=== PATIENT | female | born 1965 | race Caucasian/White ===

== ENCOUNTER 2020-04-12 09:13 | Outpatient (RCR) | payer OTHER, SELFPAY | END 2020-04-22 23:59 | disposition home or self-care (01) | LOC: SPT 09:13 | PROVIDERS: PCP Family Medicine; Referring Provider Emergency Medicine; Visit Provider Emergency Medicine | DX: M75.112 Incomplete rotator cuff tear or rupture of left shoulder, not specified as traumatic (principal) | CPT/HCPCS: 97110 ==

== ENCOUNTER 2020-04-23 06:00 | Outpatient (RCR) | payer OTHER, SELFPAY | END 2020-05-22 23:59 | disposition home or self-care (01) | LOC: SPT 06:00 | PROVIDERS: PCP Family Medicine; Referring Provider Emergency Medicine; Visit Provider Emergency Medicine | DX: M75.112 Incomplete rotator cuff tear or rupture of left shoulder, not specified as traumatic (principal) | CPT/HCPCS: 97110 ==

== ENCOUNTER 2020-05-23 06:00 | Outpatient (RCR) | payer OTHER, SELFPAY | END 2020-06-22 23:59 | disposition home or self-care (01) | LOC: SPT 06:00 | PROVIDERS: PCP Family Medicine; Referring Provider Emergency Medicine; Visit Provider Emergency Medicine | DX: M75.112 Incomplete rotator cuff tear or rupture of left shoulder, not specified as traumatic (principal) | CPT/HCPCS: 97110 ==

== ENCOUNTER → 2023-01-23 08:31 | Outpatient (BNVA) | payer OTHER, SELFPAY | PROVIDERS: PCP Family Medicine; Visit Provider Family Medicine | DX: I10 Essential (primary) hypertension; Z00.00 Encounter for general adult medical examination without abnormal findings; Z13.6 Encounter for screening for cardiovascular disorders; E03.9 Hypothyroidism, unspecified | CPT/HCPCS: 80053; 80061; 84443; 85025 ==

== ENCOUNTER 2023-02-05 07:29 | Outpatient (CLI) | payer OTHER, SELFPAY ==
--- NOTE | 2023-02-05 07:42 | MM_ITS ---
WS: [id number] DIAGNOSTIC BILATERAL DIGITAL BREAST TOMOSYNTHESIS MAMMOGRAPHY WITH CAD Right breast ultrasound, limited HISTORY: lump lower inner right breast COMPARISON: 05/05/2019, 03/20/2018 TECHNIQUE: Bilateral craniocaudad, mediolateral oblique, and mediolateral views are submitted with to mosynthesis and SM. Spot compression right CC and MLO. Computer aided detection utilized. Breast composition: There are scattered areas of fibroglandular density. No masses or suspicious calc ifications are identified. There is no abnormality at the site of the palpable mass along the inferio r medial breast. Right breast ultrasound, limited. Ultrasound directed to the right breast at 4:00. No mass or distortion or shadowing identified. Selena l ultrasound right breast in the area indicated by the patient. IMPRESSION: MM/[place] [id number] BI-RADS: 2-Benign FOLLOW UP: 1 Year Follow-up
--- NOTE | 2023-02-05 08:14 | US_ITS ---
WS: [id number] DIAGNOSTIC BILATERAL DIGITAL BREAST TOMOSYNTHESIS MAMMOGRAPHY WITH CAD Right breast ultrasound, limited HISTORY: lump lower inner right breast COMPARISON: 05/05/2019, 03/20/2018 TECHNIQUE: Bilateral craniocaudad, mediolateral oblique, and mediolateral views are submitted with to mosynthesis and SM. Spot compression right CC and MLO. Computer aided detection utilized. Breast composition: There are scattered areas of fibroglandular density. No masses or suspicious calc ifications are identified. There is no abnormality at the site of the palpable mass along the inferio r medial breast. Right breast ultrasound, limited. Ultrasound directed to the right breast at 4:00. No mass or distortion or shadowing identified. Selena l ultrasound right breast in the area indicated by the patient. IMPRESSION: US/US breast RT limited* [id number] BI-RADS: 2-Benign FOLLOW UP: 1 Year Follow-up
== END 2023-02-05 07:30 | disposition home or self-care (01) ==
PROVIDERS: PCP Family Medicine; Visit Provider Family Medicine
DX: N63.14 Unspecified lump in the right breast, lower inner quadrant (principal)
CPT/HCPCS: 76642; 77062; G0279

== ENCOUNTER → 2024-11-25 15:46 | Outpatient (BNVA) | payer OTHER, SELFPAY | PROVIDERS: PCP Family Medicine; Visit Provider Family Medicine | DX: Z00.00 Encounter for general adult medical examination without abnormal findings (principal); I10 Essential (primary) hypertension; R00.2 Palpitations; E03.9 Hypothyroidism, unspecified | CPT/HCPCS: 80053; 80061; 82607; 84443; 85025 ==

== ENCOUNTER 2025-04-18 12:55 | Outpatient (CLI) | payer OTHER, SELFPAY ==
[2025-04-18] MEDS: iohexol 350 mg/mL 500 mL Btl (per mL) PO (13:57)
--- NOTE | 2025-04-18 14:00 | CT_ITS ---
WS: [id number] CT ABDOMEN AND PELVIS WITH CONTRAST HISTORY: K57.92 - Diverticulitis of intestine, part unspecified, w... TECHNIQUE: Imaging performed of the abdomen and pelvis with IV contrast. Single phase imaging of the abdomen. Coronal and sagittal reformats are submitted. All CT scans at [facility] use at least one of these dose optimization techniques: automated exposure control; mA and/or kV adjustment per patient size (includes targeted exams where dose is matched to clinical indication); or iterative reconstruction. IV CONTRAST: Omnipaque 350; 100 mL IV. Oral contrast: Yes. DLP: 826.20 mGy.cm COMPARISON: None available. Lower thorax: Lung bases are clear. Heart is normal size. Small hiatal hernia. Liver/biliary system: Liver is top normal size. Focal fatty sparing along the falciform ligament. No mass or intrahepatic dilatation. Gallbladder: Status post cholecystectomy. Pancreas: Normal size pancreas and pancreatic duct. No adjacent inflammation. Spleen: Normal size spleen. No mass or infarct. Adrenal glands: Normal. Right kidney: Normal. Left kidney: Normal. Aorta: Normal. Lymphadenopathy: None. Free fluid: None. GI tract: Normally distended stomach. No small bowel obstruction. Prior appendectomy. Mild diffuse constipation throughout the colon. Pancolonic diverticulosis with increasing diverticular burden in the descending and sigmoid colon. There is some very minimal inflammation surrounding the mid descending colon. No fluid or free air. No abscess. Abdominal wall: Unremarkable abdominal wall. No hernia. Pelvis: No free fluid or adenopathy within the pelvis. Prior hysterectomy. Bones: 2 mm anterolisthesis of L3. CT/CT abdomen pelvis w con* [id number] IMPRESSION: 1. Mild pancolonic diverticulosis. 2. Increasing diverticular burden in the descending and sigmoid colon. There i s some very minimal inflammation in the descending colon suggesting very mild c hanges of diverticulitis. 3. No abscess or free fluid. 4. Prior appendectomy. 5. Prior hysterectomy. 6. Prior cholecystectomy.
[2025-04-18] MEDS: iohexol 350 mg/mL 500 mL Btl (per mL) IV (14:22)
== END 2025-04-18 12:56 | disposition home or self-care (01) ==
LOC: RAD 12:56
PROVIDERS: PCP Family Medicine; Visit Provider Family Medicine
DX: K57.92 Diverticulitis of intestine, part unspecified, without perforation or abscess without bleeding (principal)
CPT/HCPCS: 74177